=== PATIENT | male | born 1975 | race Caucasian/White ===

== ENCOUNTER 2020-03-28 23:05 | Inpatient (IN) | payer OTHER ==
[~2020-03-28] VITALS: Ht 193 cm; Wt 99.3 kg
[2020-03-28] MEDS ORDERED: ALLO300T2 PO (23:25)
--- NOTE | 2020-03-28 23:25 | NUR ---
at bedside for assessment
[2020-03-28] MEDS ORDERED: NITROGLYCERIN 0.4 MG/TAB BOTTLE SL ONE (23:45)
[2020-03-28] MEDS ORDERED: ASPIRIN 325 MG TABLET PO ONE (23:45)
--- NOTE | 2020-03-28 23:53 | NUR ---
AT [address] ADIM ,CP =7/10, BP-157/90, HR=47,RR=14, AT 2349 CP 8-9/10 BT=728/69, HR=61,RR=14, PT STATED THAT THE NITRO SL MADE HIM FEEL WORSE, MD US NOTIFIED. MONITOR SHOWS NSR.
--- NOTE | 2020-03-29 00:05 | NUR ---
PT STATED HIS CP =08/26, DR US NOTIFIED.
[2020-03-29 00:14] LABS: BASOPHILS # (AUTO) 0.1 K/uL (0.0-8.0); BASOPHILS % (AUTO) 1.4 % (0.0-2.0); EOSINOPHILS # (AUTO) 0.1 K/uL (0.0-0.7); HEMATOCRIT 41.5 % (36.7-47.1); HEMOGLOBIN 14.2 g/dL (12.5-16.3); MEAN CORPUSCULAR HEMOGLOBIN 30.9 uug (23.8-33.4); MEAN CORPUSCULAR HGB CONC 34 g/dL (32.5-36.3); MEAN CORPUSCULAR VOLUME 90.5 fL (73.0-96.2); MONOCYTES # (AUTO) 0.6 K/uL (2.0-10.0); MONOCYTES % (AUTO) 11.4 % (0.0-11.0); NEUTROPHILS # (AUTO) 2.8 K/uL (1.8-8.9); NEUTROPHILS % (AUTO) 50.2 % (38.5-71.5); PLATELET COUNT (AUTO) 246 K/uL (152-348); RED BLOOD CELL COUNT(AUTO) 4.59 MIL/uL (4.06-5.63); WHITE BLOOD COUNT (AUTO) 5.6 K/uL (3.6-10.2)
[2020-03-29 00:24] LABS: CARBON DIOXIDE 26 mmol/L (21-32); CHLORIDE 103 mmol/L (98-107); CREATININE 1.1 mg/dL (0.6-1.3); GLUCOSE 124 mg/dL (74-106); POTASSIUM 3.5 mmol/L (3.5-5.1); UREA NITROGEN, BLOOD 20 mg/dL (7-18)
[2020-03-29 00:36] LABS: ALANINE AMINOTRANSFERASE 33 U/L (16-63); ALKALINE PHOSPHATASE 118 U/L (50-136); ASPARTATE AMINOTRANSFERASE 26 U/L (15-37); BILIRUBIN,DIRECT < 0.1 mg/dL (0.0-0.2); BILIRUBIN,TOTAL 0.5 mg/dL (0.2-1.0); TOTAL PROTEIN, SERUM 6.8 g/dL (6.4-8.2)
--- NOTE | 2020-03-29 01:59 | NUR ---
PT DECIDED TO BE ADMITTED, MORPINE AND ZOFRAN ADMINISTERED. MONITOR SHOWS SINUS IRIS. CP=5.
[2020-03-29] MEDS ORDERED: ONDANSETRON 4 MG/2 ML VIAL IV ONE (02:00)
[2020-03-29] MEDS ORDERED: MORPHINE SULFATE 4 MG/1 ML DISP.SYRIN IV ONE ×2 (02:00→05:30)
--- NOTE | 2020-03-29 04:09 | NUR ---
AT 0330 CALLED [facility] TO COVID RESULTS AND WAS INFORMED THAT [facility] STATED RESULTS NOT IN. I CALLED [facility] SPOKE TO BETTIE AT 0405. BETTIE STAED SHE WOULD CALL ME BACK WITH AN UPDATE.
--- NOTE | 2020-03-29 04:17 | NUR ---
CALLED AGAIN TO LAB SPOKE TO JOSEPHINE WHOM STATED THAT THE CARRIER PICKED UP COVID SPECIMEN AT 0100 FROM [facility] AND [facility] HAS NOT RECEIVED SPECIMEN. JOSEPHINE FROM THE LAB STATED SHE WOULD KEEP ME UPDATED.
--- NOTE | 2020-03-29 04:53 | NUR ---
CALLED [facility] FOR PANEL CALL, DR LLOYD TO CALL US BACK.
--- NOTE | 2020-03-29 05:11 | NUR ---
BETTIE FROM [facility] CALLEDE TO REPORT NEG COVID RESULTS.
[2020-03-29] MEDS ORDERED: ONDANSETRON 4 MG/2 ML VIAL IV PRN (05:30)
[2020-03-29] MEDS ORDERED: MORPHINE SULFATE 2 MG/1 ML DISP.SYRIN IV PRN (05:30)
[2020-03-29] MEDS ORDERED: MAGNESIUM HYDROXIDE 30 ML LIQUID UDC PO PRN (05:30)
[2020-03-29] MEDS ORDERED: Z GUARD REMEDY PASTE 57 GM TUBE TOP PRN (05:30)
[2020-03-29] MEDS ORDERED: ACETAMINOPHEN 325 MG TABLET PO PRN (05:30)
--- NOTE | 2020-03-29 05:38 | NUR ---
Report given to Lucina EUGENE at this time
--- NOTE | 2020-03-29 06:10 | NUR ---
Pt. admitted to tele , under care of Dr. Sierra Belongs List completed and all belongings sent with patient, no signs of acute distress noted
--- NOTE | 2020-03-29 06:15 | NUR ---
RECEIVED PATIENT VIA GURNEY FROM ER. PATIENT IS A/O X4. PLACED ON TELE SB IN THE 40'S. ALL OTHER VS WNL. C/O OF CHEST PRESSURE ON AND OFF 07/29. NO RESP. DISTRESS NOTED. ORIENTED TO ROOM AND CALL LIGHT IN REACH. ALL NEEDS ATTENDED. WILL CONTINUE TO MONITOR.
[2020-03-29 06:22] VITALS: BP 139/79
--- NOTE | 2020-03-29 08:43 | NUR ---
PATIENT SEEN AND EXAMINED BY [employer] WITH NEW ORDERS AND NOTED PATIENT IS ALERT AND ORIENTED ANXIOUS RE WANTING TO GO HOME BUT IS WAITING FOR ECHO AND FILLING HAULER WEAVING TO SEE PATIENT PRIOR TO DISCHARGE.
[2020-03-29] MEDS ORDERED: ASPIRIN 325 MG TABLET PO SCH (09:00)
--- NOTE | 2020-03-29 10:26 | NUR ---
DR GASCA HERE TO SEE PATIENT AND STATED THAT PATIENT CAN BE DISCHARGED TODAY AND HE SHOULD BE INSTRUCTED TO FOLLOW UP WITH HIM IN 2-3 WEEKS.
--- NOTE | 2020-03-29 10:42 | NUR ---
PATIENT IS ANXIOUS TO LEAVE SENT A MESSAGE TO [facility] AWAITING FOR DISCHARGE ORDERS
--- NOTE | 2020-03-29 10:43 | NUR ---
[facility] RETURNED CALL STATED WORKING ON HIS DISCHARGE.
--- NOTE | 2020-03-29 10:50 | NUR ---
ORDER FOR DISCHARGE NOTED FROM [facility] AND PATIENT AWARE AND BEING PREPPED FOR DISCHARGE AT THIS TIME
--- NOTE | 2020-03-29 11:00 | NUR ---
PATIENT DISCHARGED WITH DISCHARGE INSTRUCTIONS AND ALL HIS PERSONAL BELONGINGS AND PATIENT INSTRUCTED TO CALL HIS PRIMARY DOCTOR FOR A FOLLOW UP APPOINTMENT WITHIN ONE WEEK AND ALSO TO FOLLOW UP WITH DR CARRASCO WITHIN TWO TO THREE WEEKS PHONE NUMBER PROVIDED AND HE EXPRESSED UNDERSTANDING PATIENT ASSISTED TO HIS CAR WHICH IS PARKED ON [address] IN FRONT OF THE [employer].
== END 2020-03-29 11:00 | disposition home or self-care (01) | DRG 303 ==
LOC: ER 23:09 → TELE3 03-29 05:21
PROVIDERS: ADMIT Nurse Practitioner Acute Care; ATTEND Nurse Practitioner Acute Care
DX: I25.10 Atherosclerotic heart disease of native coronary artery without angina pectoris (principal); R79.89 Other specified abnormal findings of blood chemistry; R73.9 Hyperglycemia, unspecified; E78.5 Hyperlipidemia, unspecified; M10.9 Gout, unspecified; I10 Essential (primary) hypertension; Z88.0 Allergy status to penicillin; Z82.49 Family history of ischemic heart disease and other diseases of the circulatory system; F14.90 Cocaine use, unspecified, uncomplicated
CPT/HCPCS: 36415; 70030-TC; 71045; 85025; 93005; 93307; A4663; G0378; J2270; J2405; J7030